=== PATIENT | male | born 1955 | race Caucasian/White ===

== ENCOUNTER 2017-01-27 14:19 | Inpatient (IN) | payer MEDICAID, MEDICARE ==
--- NOTE | 2017-01-27 14:54 | ED Physician Chart ---
Chief Complaint/HPI - Patient Information Date Seen:: 01/27/17 Time Seen:: 14:40 Chief Complaint:: redness left foot History of Present Illness:: Patient underwent debridement of necrotizing fasciitis of left first toe and forefoot with secondary necrosis on 12/16/2016 at [facility]. He has not received antibiotics for about one week. He denies chills or fever. Allergies:: Allergies Allergy/AdvReac Type Severity Reaction Status Date / Time No Known Allergies Allergy Verified 01/27/17 14:29 Vitals:: Vital Signs - 8 hr 01/27/17 14:19 Temp 97.9 F HR 77 RR 18 BP 158/82 O2 Sat % 96 Historian:: Patient Review:: Nurse's Note Reviewed Review of Systems - Review of Systems General/Constitutional: No fever, No chills Skin: Skin lesions Head: No headache Eyes: No loss of vision ENT: No earache Neck: No neck pain Cardio Vascular: No chest pain Pulmonary: No SOB, No cough GI: No nausea, No vomiting G/U: No dysuria, No hematuria Endocrine: No polyuria, No polydipsia Psychiatric: No prior psych history Hematopoietic: No bruising Allergic/Immuno: No urticaria Neurological: No syncope Past Medical History - Past Medical History Past Medical History: DM, Other (right inguinal hernia) Family History: Cancer Social History: Non Smoker, No Alcohol, Other (patient stopped drinking alcohol more than 1 month ago) Surgical History: other (See under history and physical) Psychiatricy History: None Medication: Reviewed Family Medical History - Family Member Mother History Unknown: Yes Physical Exam - Physical Examination General/Constitutional: Well-developed, well-nourished, Alert, No distress Head: Atraumatic Eyes: Lids, conjuctiva normal, PERRL Other Skin comments:: Approximately 6 x 3 cm irregular area of granulating tissue medial distal left foot. There is erythema of the medial and plantar aspects of the left foot. The erythema extends proximally to the level of anterior aspect of the medial malleolus. ENMT: External ears, nose nl Neck: No nuchal rigidity Respiratory: Nl effort/Exclusion, Clear to Auscultation Cardio Vascular: RRR, No murmur, gallop, rubs, NL S1 S2 GI: No tenderness/rebounding/guarding, No organomegaly Other GI comments:: Large right inguinal hernia : No CVA tenderness Other Extremities comments:: .See above under skin Neuro/Psych: Alert/oriented, No focal deficits Misc: Normal back ED Septic Shock - . Is Septic Shock (SBP<90, OR Lactate>4 mmol\L) present?: No - <6hrs of presentation: Vital Signs: Vital Signs - 8 hr 01/27/17 14:19 Temp 97.9 F HR 77 RR 18 BP 158/82 O2 Sat % 96 Reassessment (Disposition) - Reassessment Reassessment:: I spoke to at about 1445. He wanted the patient [facility] with a consult to Dr.Devesh Seth with whom I spoke a few minutes later. Reassessment Condition:: Unchanged - Diagnosis Diagnosis:: Cellulitis left foot; diabetes - Patient Disposition Admitted to:: Med/Surg Spoke to:: Dr. May Admitting Medical Physician:: Dr. May Condition at Disposition:: Unchanged
[2017-01-27 15:04] LABS: HEMATOCRIT 40.8 % (39.0-49.0); HEMOGLOBIN 13.3 gm/dL (13.2-17.3); MEAN CELL VOLUME 88.8 fl (80-99); MEAN CORPUSCULAR HEMOGLOBIN 28.8 pg (26.0-30.0); MEAN CORPUSCULAR HGB CONC 32.5 pg (28.0-36.0); MEAN PLATELET VOLUME 8.7 fl; PLATELET COUNT 233 Th/cmm (150-400); RED CELL DISTRIBUTION WIDTH 13.1 % (11.5-20.0); WHITE BLOOD COUNT 10.4 Th/cmm (4.8-10.8)
[2017-01-27 15:22] LABS: ANION GAP 9.1 (7.0-16.0); BUN - UREA NITROGEN 18 mg/dL (7-25); BUN/CREATININE RATIO 13.8; CALCIUM SERUM 9.8 mg/dL (8.6-10.3); CARBON DIOXIDE 23.8 mEq/L (21.0-31.0); CHLORIDE 106 mEq/L (98-107); CREATININE - SERUM 1.3 mg/dL (0.7-1.3); GLUCOSE 174 mg/dL (70-105); POTASSIUM SERUM 3.9 mEq/L (3.5-5.1); SODIUM SERUM 135 mEq/L (136-145)
[2017-01-27 15:30] LABS: EOSINOPHIL 28 % (0-5); NEUTROPHILS 46 % (40-80); PLATELET ESTIMATE ADEQUATE (NORMAL); TOTAL CELLS COUNTED 100
[2017-01-27] MEDS: APAP/Oxycodone 5/325mg Oral Tab PO PRN (22:46)
[2017-01-27] MEDS ORDERED: APAP/Oxycodone 5/325mg Oral Tab PO PRN (23:27)
[2017-01-27] MEDS ORDERED: Albuterol/Ipratropium Neb 3 ML AERS HHN PRN (23:27)
[2017-01-27] MEDS ORDERED: Guaifenesin DM 10 ML UDC PO PRN (23:27)
[2017-01-28] MEDS ORDERED: Non-Formulary Item 1 EA (Insulin Lispro [Humalog] 2 UNIT) SUBQ SCH (07:30)
[2017-01-28] MEDS: INSULIN ASPART SLIDING SCALE 100 UNITS/ML UNIT SUBQ SCH ×4 (07:42→20:56)
[2017-01-28] MEDS: Multivitamin w/ Minerals Tab PO SCH (08:59)
--- NOTE | 2017-01-28 10:12 | History and Physical ---
History of Present Illness - HPI Chief Complaint: left foot redness HPI: 61 year old male patient presented with c/o left foot redness and pain s/p debridement of necrotizing fascitis of left first toe and forefoot states not taking antibiotics for 1 week Vital Signs: Last Vital Signs Temp 98.3 F 01/28/17 07:53 Pulse 60 01/28/17 08:59 Resp 18 01/28/17 08:00 BP 144/70 01/28/17 08:59 Pulse Ox 95 01/28/17 08:00 Past Medical History Cardiovascular: Report: No Pertinent Hx Pulmonary: Report: No Pertinent Hx [employer]: Report: No Pertinent Hx GI: Report: No Pertinent Hx Psych: Report: No Pertinent Hx Musculoskeletal: Report: No Pertinent Hx Rheumatologic: Report: No pertinent Hx Infectious Disease: Report: No Pertinent Hx Renal/: Report: No Pertinent Hx Endocrine: Report: Diabetes Dermatology: Report: No Pertinent Hx - Past Surgical History Past Surgical History: Hernia Repair Family Medical History - Family Member Mother History Unknown: Yes Age: 61 Ethnicity: Living Status: Unknown Hx Family Cancer: Yes Hx Family Coronary Artery Disease: No Hx Family Congestive Heart Failure: No Hx Family Hypertension: No Hx Family Stroke: No Hx Family Diabetes: No Hx Family Seizures: No Hx Family Dementia: No Hx Family AIDS: No Hx Family HIV: No Hx Family COPD: No Hx Family Hepatitis: No Hx Family Psychiatric Problems: No Hx Family Tuberculosis: No Social History Smoke: No Alcohol: None, Other (patient stopped drinking alcohol 1 month ago) Drugs: None Lives: Other Domestic Violence: Negative Health Maintenance Health Maintenance: Other - Medications Home Medications: Home Medication Medication Instructions Recorded Type Acetaminophen [Tylenol] 650 mg PO Q6H PRN 01/27/17 History Albuterol/Ipratropium Neb [Duoneb 3 ml HHN Q6H PRN 01/27/17 History Neb] Ascorbic Acid 500 mg PO DAILY 01/27/17 History Docusate Sodium [Colace] 100 mg PO BID 01/27/17 History Duloxetine HCl [Cymbalta] 30 mg PO HS 01/27/17 History Folic Acid [Folate] 1 mg PO DAILY 01/27/17 History Guaifenesin DM [Robitussin DM] 10 ml PO Q6HR PRN 01/27/17 History Hydralazine [Apresoline] 10 mg PO Q6H PRN 01/27/17 History Insulin Glargine, Recombinan 10 units SUBQ HS 01/27/17 History [Lantus] Insulin Lispro [Humalog] 2 unit SUBQ ACHS 01/27/17 History Lisinopril [Prinivil] 10 mg PO DAILY 01/27/17 History Multivitamin with Minerals 1 tab PO DAILY 01/27/17 History [Nature's Blend Multiple Vitamin with Minerals] Oxycodone HCl/Acetaminophen 1 tab PO Q4H PRN 01/27/17 History [Oxycodone HCl-Acetaminophen 325 mg-10 mg] Pregabalin [Lyrica] 25 mg PO TID 01/27/17 History Thiamine [Vitamin B1] 100 mg PO DAILY 01/27/17 History Tramadol HCl [Ultram] 50 mg PO Q6H PRN 01/27/17 History Zinc Sulfate 220 mg PO DAILY 01/27/17 History amLODIPine Besylate [Norvasc] 10 mg PO DAILY 01/27/17 History cloNIDine HCl [Catapres] 0.1 mg PO BID 01/27/17 History - Allergies Allergies/Adverse Reactions: Allergies Allergy/AdvReac Type Severity Reaction Status Date / Time No Known Allergies Allergy Verified 01/27/17 14:29 Review of Systems - Review of Systems Constitutional: Report: No Significant Eyes: Report: No Significant ENT: Report: No Significant Respiratory: Report: No Significant Cardiovascular: Report: No Significant Gastrointestinal: Report: No Significant Genitourinary: Report: No Significant Musculoskeletal: Report: No Significant Skin: Report: Other (left foot/pain swelling ) Neurological: Report: No Significant Physical Exam - Physical Exam HEENT: Report: Ears Nose Throat within normal limits Neck: Report: Within normal limits Cardiovascular Systems: Report: +s1/s2 noted Respiratory: Report: Breath Sounds are within normal limits Abdomen: Report: Non-tender to palpation Back: Report: Inspection of back is within normal limits. Extremities: Report: Non-tender to palpation. Skin: Report: A wound was noted. Denies: Dry, Diaphoresis (cellulitis of left foot ) Neuro/Psych: Report: Mood affect is within normal limits - Lab Results All Lab Results last 24 hours: Laboratory Last Values WBC 10.4 Th/cmm (4.8-10.8) 01/27/17 14:55 RBC 4.60 Mil/cmm (4.30-5.70) 01/27/17 14:55 Hgb 13.3 gm/dL (13.2-17.3) 01/27/17 14:55 Hct 40.8 % (39.0-49.0) 01/27/17 14:55 MCV 88.8 fl (80-99) 01/27/17 14:55 MCH 28.8 pg (26.0-30.0) 01/27/17 14:55 MCHC Differential 32.5 pg (28.0-36.0) 01/27/17 14:55 RDW 13.1 % (11.5-20.0) 01/27/17 14:55 Plt Count 233 Th/cmm (150-400) 01/27/17 14:55 MPV 8.7 fl 01/27/17 14:55 Neutrophils (Manual) 46 % (40-80) 01/27/17 14:55 Lymphocytes 22 % (20-50) 01/27/17 14:55 Monocytes 4 % (2-10) 01/27/17 14:55 Eosinophils 28 % (0-5) H 01/27/17 14:55 Platelet Estimate ADEQUATE (NORMAL) 01/27/17 14:55 Sodium 135 mEq/L (136-145) L 01/27/17 14:55 Potassium 3.9 mEq/L (3.5-5.1) 01/27/17 14:55 Chloride 106 mEq/L (98-107) 01/27/17 14:55 Carbon Dioxide 23.8 mEq/L (21.0-31.0) 01/27/17 14:55 Anion Gap 9.1 (7.0-16.0) 01/27/17 14:55 BUN 18 mg/dL (7-25) 01/27/17 14:55 Creatinine 1.3 mg/dL (0.7-1.3) 01/27/17 14:55 Est GFR ( Amer) > 60.0 ml/min (>90) 01/27/17 14:55 Est GFR (Non-Af Amer) 59.3 ml/min 01/27/17 14:55 BUN/Creatinine Ratio 13.8 01/27/17 14:55 Glucose 174 mg/dL (70-105) H 01/27/17 14:55 POC Glucose 105 MG/DL (70 - 105) 01/28/17 06:23 Hemoglobin A1c % 6.9 % (4.0-6.0) H 01/28/17 05:39 Calcium 9.8 mg/dL (8.6-10.3) 01/27/17 14:55 Laboratory Results - last 24 hr 01/27/17 01/27/17 01/27/17 14:55 14:55 22:49 WBC 10.4 RBC 4.60 Hgb 13.3 Hct 40.8 MCV 88.8 MCH 28.8 MCHC Differential 32.5 RDW 13.1 Plt Count 233 MPV 8.7 Neutrophils (Manual) 46 Lymphocytes 22 Monocytes 4 Eosinophils 28 H Platelet Estimate ADEQUATE Sodium 135 L Potassium 3.9 Chloride 106 Carbon Dioxide 23.8 Anion Gap 9.1 BUN 18 Creatinine 1.3 Est GFR ( Amer) > 60.0 Est GFR (Non-Af Amer) 59.3 BUN/Creatinine Ratio 13.8 Glucose 174 H POC Glucose 150 H Hemoglobin A1c % Calcium 9.8 01/28/17 01/28/17 05:39 06:23 WBC RBC Hgb Hct MCV MCH MCHC Differential RDW Plt Count MPV Neutrophils (Manual) Lymphocytes Monocytes Eosinophils Platelet Estimate Sodium Potassium Chloride Carbon Dioxide Anion Gap BUN Creatinine Est GFR ( Amer) Est GFR (Non-Af Amer) BUN/Creatinine Ratio Glucose POC Glucose 105 Hemoglobin A1c % 6.9 H Calcium - Assessment Assessment: cellulitis of left foot s/p debridment of necrotizing fascitis of left first toe and forefoot Diabetes - Plan Plan: as per order sheet
--- NOTE | 2017-01-28 12:15 | Consultation ---
Consult Note - Consult Note Service Date: 01/28/17 Referring Physician: Callie May Consult Note: PHYSICIAN Consultation Note: Date of Admission: 01/27/17 Purpose of Consultation: infected wound. Chief Complaint: Patient SIERRA ZUNIGA was admitted to [facility] with LEFT FOOT CELLULITIS. History of Present Illness: 61 y male with history of DM admitted to the [facility] on 12/16/2016 for the left foot wound and diagnosed gas gangrene, narcotizing fascitis. surgical intervention performed by Dr Stanton. He was also suspected to have osteomyelitis. He was discharged to the SNF for further antibiotic management. He was sent to [place] [facility] for evaluation of left foot wound. ID consult was called for antibiotic management. There is no fever. As per the patient the wound is healing well. He was also not receiving IV antibiotic for one week. He also does not know the name of antibiotics. Past Medical History: DM2. H/o hernia repair. Allergies Allergy/AdvReac Type Severity Reaction Status Date / Time No Known Allergies Allergy Verified 01/27/17 14:29 Vital Signs Temp 98.4 F 01/28/17 12:05 Pulse 70 01/28/17 12:05 Resp 17 01/28/17 12:05 BP 147/79 01/28/17 12:05 Pulse Ox 98 01/28/17 12:05 Intake & Output 01/27/17 01/28/17 01/28/17 18:59 06:59 18:59 Intake Total 240 300 480 Balance 240 300 480 Weight (lbs) 107.955 kg 105.551 kg 105.551 kg Intake: Oral 240 300 480 Other: # Voids 1 2 # Bowel Movements 0 Laboratory Results - last 24 hr 01/27/17 01/27/17 01/27/17 14:55 14:55 22:49 WBC 10.4 RBC 4.60 Hgb 13.3 Hct 40.8 MCV 88.8 MCH 28.8 MCHC Differential 32.5 RDW 13.1 Plt Count 233 MPV 8.7 Neutrophils (Manual) 46 Lymphocytes 22 Monocytes 4 Eosinophils 28 H Platelet Estimate ADEQUATE Sodium 135 L Potassium 3.9 Chloride 106 Carbon Dioxide 23.8 Anion Gap 9.1 BUN 18 Creatinine 1.3 Est GFR ( Amer) > 60.0 Est GFR (Non-Af Amer) 59.3 BUN/Creatinine Ratio 13.8 Glucose 174 H POC Glucose 150 H Hemoglobin A1c % Calcium 9.8 01/28/17 01/28/17 05:39 06:23 WBC RBC Hgb Hct MCV MCH MCHC Differential RDW Plt Count MPV Neutrophils (Manual) Lymphocytes Monocytes Eosinophils Platelet Estimate Sodium Potassium Chloride Carbon Dioxide Anion Gap BUN Creatinine Est GFR ( Amer) Est GFR (Non-Af Amer) BUN/Creatinine Ratio Glucose POC Glucose 105 Hemoglobin A1c % 6.9 H Calcium Home Medication Medication Instructions Recorded Type Acetaminophen [Tylenol] 650 mg PO Q6H PRN 01/27/17 History Albuterol/Ipratropium Neb [Duoneb 3 ml HHN Q6H PRN 01/27/17 History Neb] Ascorbic Acid 500 mg PO DAILY 01/27/17 History Docusate Sodium [Colace] 100 mg PO BID 01/27/17 History Duloxetine HCl [Cymbalta] 30 mg PO HS 01/27/17 History Folic Acid [Folate] 1 mg PO DAILY 01/27/17 History Guaifenesin DM [Robitussin DM] 10 ml PO Q6HR PRN 01/27/17 History Hydralazine [Apresoline] 10 mg PO Q6H PRN 01/27/17 History Insulin Glargine, Recombinan 10 units SUBQ HS 01/27/17 History [Lantus] Insulin Lispro [Humalog] 2 unit SUBQ ACHS 01/27/17 History Lisinopril [Prinivil] 10 mg PO DAILY 01/27/17 History Multivitamin with Minerals 1 tab PO DAILY 01/27/17 History [Nature's Blend Multiple Vitamin with Minerals] Oxycodone HCl/Acetaminophen 1 tab PO Q4H PRN 01/27/17 History [Oxycodone HCl-Acetaminophen 325 mg-10 mg] Pregabalin [Lyrica] 25 mg PO TID 01/27/17 History Thiamine [Vitamin B1] 100 mg PO DAILY 01/27/17 History Tramadol HCl [Ultram] 50 mg PO Q6H PRN 01/27/17 History Zinc Sulfate 220 mg PO DAILY 01/27/17 History amLODIPine Besylate [Norvasc] 10 mg PO DAILY 01/27/17 History cloNIDine HCl [Catapres] 0.1 mg PO BID 01/27/17 History Current Medications Generic Name Dose Route Start Last Admin Trade Name Freq PRN Reason Stop Dose Admin Acetaminophen 650 mg 01/27/17 23:27 Tylenol PO 03/28/17 23:26 Q6H PRN mild pain and temp >101 Albuterol/Ipratropium 3 ml 01/27/17 23:27 Duoneb Neb HHN 03/28/17 23:26 Q6H PRN sob Amlodipine Besylate 10 mg 01/28/17 09:00 01/28/17 08:58 Norvasc PO 03/29/17 08:59 10 mg DAILY MONISHA Administration Ascorbic Acid 500 mg 01/28/17 09:00 01/28/17 09:00 Vitamin C PO 03/29/17 08:59 500 mg DAILY MONISHA Administration Clonidine HCl 0.1 mg 01/28/17 09:00 01/28/17 08:59 Catapres PO 03/29/17 08:59 0.1 mg BID MONISHA Administration Docusate Sodium 100 mg 01/28/17 09:00 01/28/17 09:00 Colace PO 03/29/17 08:59 100 mg BID MONISHA Administration Duloxetine HCl 30 mg 01/28/17 21:00 Cymbalta PO 03/29/17 20:59 HS [facility] Protocol Folic Acid 1 mg 01/28/17 09:00 01/28/17 08:59 Folate PO 03/29/17 08:59 1 mg DAILY MONISHA Administration Guaifenesin/Dextromethorphan 10 ml 01/27/17 23:27 Robitussin Dm PO 03/28/17 23:26 Q6HR PRN Cough Hydralazine HCl 10 mg 01/27/17 23:27 Apresoline PO 03/28/17 23:26 Q6H PRN sbp>160 Insulin Aspart 0 units 01/28/17 07:30 01/28/17 07:42 Novolog Insulin Sliding Scale SUBQ 03/29/17 07:29 Not Given ACHS [facility] Protocol Insulin Detemir 10 units 01/28/17 21:00 Levemir Insulin SUBQ 03/29/17 20:59 HS [facility] Lisinopril 10 mg 01/28/17 09:00 01/28/17 08:59 Zestril PO 03/29/17 08:59 10 mg DAILY MONISHA Administration Miscellaneous 2 unit 01/28/17 07:30 Insulin Lispro [Humalog] SUBQ 03/29/17 07:29 ACHS MONISHA Oxycodone/Acetaminophen 2 tab 01/27/17 17:20 01/27/17 22:46 Percocet 5/325mg Oral Tab PO 03/28/17 17:19 2 tab Q6H PRN Administration Pain (SEVERE) Oxycodone/Acetaminophen 1 tab 01/27/17 23:27 Percocet 5/325mg Oral Tab PO Q4H PRN MOD PAIN Pregabalin 25 mg 01/28/17 09:00 01/28/17 08:58 Lyrica PO 03/29/17 08:59 25 mg TID MONISHA Administration Thiamine HCl 100 mg 01/28/17 09:00 01/28/17 09:00 Vitamin B1 PO 03/29/17 08:59 100 mg DAILY MONISHA Administration Tramadol HCl 50 mg 01/27/17 23:27 Ultram PO 03/28/17 23:26 Q6H PRN breakthrough pain Zinc Sulfate 220 mg 01/28/17 09:00 01/28/17 08:58 Zinc Sulfate PO 03/29/17 08:59 220 mg DAILY MONISHA Administration Review of Systems: A 12 point ROS was reviewed with the pertinent positive and negatives noted in the HPI. Social History Lives at [facility]. Smoking Status Never smoker Family Medical History Unknown Physical Exam: General: No Acute Distress HEENT: EOMI Bilaterally, PERRLA Bilaterally, Head is normocephalic, atraumatic on inspection. Cardio: +S1/S2 Auscultated, RRR, no murmurs/rubs/gallops noted Respiratory: Clear to Auscultate Bilaterally Abdominal: Soft, Nondistended, Nontender to palpation x 4 quadrants Extremities: No Edema noted in the lower extremities. Left foot: on media aspect there is a stage 3 open wound distal; to the big toe with serous discharge. The base is pink/ Neurological: Alert and Oriented x3, Cranial Nerves II-XII intact bilaterally, Gait Steady, No Focal Deficits noted. Assessment/Plan: 1. OPEN stage 3 wound of the left foot. with suspicion of osteomyelitis. 2. DM2. RECOMMENDATION: Will continue wound care. He has almost received around 5 weeks of IV antibiotics. Check wound culture and 3 phase bone scan. Check ESR CRP in am. Will get reports from [facility].\ Consult Dr Stanton. wait for the labs and further input from DR Jacobson and take dicision accordingly. Thank you, Dr May. Rolo Castellon Devesh N., M.D. [id number]
[2017-01-28] MEDS: APAP/Oxycodone 5/325mg Oral Tab PO PRN (14:29)
[2017-01-28] MEDS ORDERED: VTE Chemical Prophylaxis Screen/Admission MC PRN (15:42)
[2017-01-28] MEDS: Insulin Detemir 100 units/mL 10mL Vial SUBQ SCH (20:56)
[2017-01-29] MEDS: INSULIN ASPART SLIDING SCALE 100 UNITS/ML UNIT SUBQ SCH ×4 (07:32→20:21)
[2017-01-29] MEDS: Multivitamin w/ Minerals Tab PO SCH (08:57)
--- NOTE | 2017-01-29 10:14 | Diagnostic Imaging Report ---
Examination: Three-phase bone scan. HISTORY osteomyelitis. Findings: utilizing 19.6 mCi technetium 99m 3-phase bone scan was obtained of lower extremities. The flow images, static images, and delayed images of both feet were obtained. The study demonstrates increased uptake on the right from a surgical on the medial aspect of the left foot distally most likely represents cellulitis. Mild inflammatory changes are noted on the plantar aspect of the right distal foot also might be related to cellulitis. There is no evidence of osteolytic involvement. IMPRESSION 1. Soft tissue cellulitis no evidence for osteomyelitis of the feet bilaterally
[2017-01-29] MEDS: Insulin Detemir 100 units/mL 10mL Vial SUBQ SCH (20:22)
[2017-01-30] MEDS: INSULIN ASPART SLIDING SCALE 100 UNITS/ML UNIT SUBQ SCH ×4 (06:58→21:24)
[2017-01-30] MEDS: Multivitamin w/ Minerals Tab PO SCH (09:38)
--- NOTE | 2017-01-30 10:08 | General Progress Note ---
Subjective - Review of Systems Events since last encounter: patient with left foot cellulitis no distress c/o pain Objective - Results Result Diagrams: 01/27/17 14:55 01/27/17 14:55 Recent Labs: Laboratory Last Values WBC 10.4 Th/cmm (4.8-10.8) 01/27/17 14:55 RBC 4.60 Mil/cmm (4.30-5.70) 01/27/17 14:55 Hgb 13.3 gm/dL (13.2-17.3) 01/27/17 14:55 Hct 40.8 % (39.0-49.0) 01/27/17 14:55 MCV 88.8 fl (80-99) 01/27/17 14:55 MCH 28.8 pg (26.0-30.0) 01/27/17 14:55 MCHC Differential 32.5 pg (28.0-36.0) 01/27/17 14:55 RDW 13.1 % (11.5-20.0) 01/27/17 14:55 Plt Count 233 Th/cmm (150-400) 01/27/17 14:55 MPV 8.7 fl 01/27/17 14:55 Neutrophils (Manual) 46 % (40-80) 01/27/17 14:55 Lymphocytes 22 % (20-50) 01/27/17 14:55 Monocytes 4 % (2-10) 01/27/17 14:55 Eosinophils 28 % (0-5) H 01/27/17 14:55 Platelet Estimate ADEQUATE (NORMAL) 01/27/17 14:55 ESR 41 mm/hr (0-20) H 01/29/17 10:00 Sodium 135 mEq/L (136-145) L 01/27/17 14:55 Potassium 3.9 mEq/L (3.5-5.1) 01/27/17 14:55 Chloride 106 mEq/L (98-107) 01/27/17 14:55 Carbon Dioxide 23.8 mEq/L (21.0-31.0) 01/27/17 14:55 Anion Gap 9.1 (7.0-16.0) 01/27/17 14:55 BUN 18 mg/dL (7-25) 01/27/17 14:55 Creatinine 1.3 mg/dL (0.7-1.3) 01/27/17 14:55 Est GFR ( Amer) > 60.0 ml/min (>90) 01/27/17 14:55 Est GFR (Non-Af Amer) 59.3 ml/min 01/27/17 14:55 BUN/Creatinine Ratio 13.8 01/27/17 14:55 Glucose 174 mg/dL (70-105) H 01/27/17 14:55 POC Glucose 119 MG/DL (70 - 105) H 01/30/17 05:26 Hemoglobin A1c % 6.9 % (4.0-6.0) H 01/28/17 05:39 Calcium 9.8 mg/dL (8.6-10.3) 01/27/17 14:55 C-Reactive Protein < 0.2 mg/dL (0.0-0.9) 01/29/17 10:00 - Physical Exam Vitals and I&O: Vital Signs Temp 98.3 F 01/30/17 04:00 Pulse 73 01/30/17 09:41 Resp 14 01/30/17 08:05 BP 147/88 01/30/17 09:41 Pulse Ox 96 01/30/17 08:05 Intake & Output 01/29/17 01/30/17 01/30/17 18:59 06:59 18:59 Intake Total 250 730 Balance 250 730 Weight (lbs) 103.873 kg Intake: Intake, IV Amount 250 250 Vancomycin HCl 1 gm In 250 250 Sodium Chloride 0.9% 250 ml @ 165 mls/hr IV Q12HR [facility] Rx#:[id number] Oral 480 Other: # Voids 3 Active Medications: Current Medications Acetaminophen (Tylenol) 650 mg PO Q6H PRN PRN Reason: mild pain and temp >101 Stop: 03/28/17 23:26 Albuterol/Ipratropium (Duoneb Neb) 3 ml HHN Q6H PRN PRN Reason: sob Stop: 03/28/17 23:26 Amlodipine Besylate (Norvasc) 10 mg PO DAILY [facility] Stop: 03/29/17 08:59 Last Admin: 01/30/17 09:39 Dose: 10 mg Ascorbic Acid (Vitamin C) 500 mg PO DAILY [facility] Stop: 03/29/17 08:59 Last Admin: 01/30/17 09:39 Dose: 500 mg Clonidine HCl (Catapres) 0.1 mg PO BID [facility] Stop: 03/29/17 08:59 Last Admin: 01/30/17 09:38 Dose: 0.1 mg Docusate Sodium (Colace) 100 mg PO BID [facility] Stop: 03/29/17 08:59 Last Admin: 01/30/17 09:40 Dose: 100 mg Duloxetine HCl (Cymbalta) 30 mg PO [facility] PRN Reason: Protocol Stop: 03/29/17 20:59 Last Admin: 01/29/17 20:22 Dose: 30 mg Folic Acid (Folate) 1 mg PO DAILY [facility] Stop: 03/29/17 08:59 Last Admin: 01/30/17 09:40 Dose: 1 mg Guaifenesin/Dextromethorphan (Robitussin Dm) 10 ml PO Q6HR PRN PRN Reason: Cough Stop: 03/28/17 23:26 Heparin Sodium (Porcine) (Heparin) 5,000 units SUBQ Q12H [facility] Stop: 03/29/17 20:59 Last Admin: 01/30/17 09:41 Dose: Not Given Hydralazine HCl (Apresoline) 10 mg PO Q6H PRN PRN Reason: sbp>160 Stop: 03/28/17 23:26 Vancomycin HCl 1 gm/ Sodium (Chloride) 250 mls @ 165 mls/hr IV Q12HR [facility] Stop: 03/30/17 08:59 Last Admin: 01/30/17 09:50 Dose: 165 mls/hr Insulin Aspart (Novolog Insulin Sliding Scale) 0 units SUBQ ACHS [facility] PRN Reason: Protocol Stop: 03/29/17 07:29 Last Admin: 01/30/17 06:58 Dose: Not Given Insulin Detemir (Levemir Insulin) 10 units SUBQ HS [facility] Stop: 03/29/17 20:59 Last Admin: 01/29/17 20:22 Dose: 10 units Lisinopril (Zestril) 10 mg PO DAILY [facility] Stop: 03/29/17 08:59 Last Admin: 01/30/17 09:41 Dose: 10 mg Miscellaneous (Vte Chemical Prophylaxis Screen/ Admission) 1 ea [facility] PRN PRN PRN Reason: PROTOCOL Stop: 03/29/17 15:41 Miscellaneous (Vancomycin Iv Per Pharmacy) 1 ea [facility] PRN PRN PRN Reason: PROTOCOL Stop: 03/30/17 08:30 Oxycodone/Acetaminophen (Percocet 5/325mg Oral Tab) 2 tab PO Q6H PRN PRN Reason: Pain (SEVERE) Stop: 03/28/17 17:19 Last Admin: 01/28/17 14:29 Dose: 2 tab Oxycodone/Acetaminophen (Percocet 5/325mg Oral Tab) 1 tab PO Q4H PRN PRN Reason: MOD PAIN Pregabalin (Lyrica) 25 mg PO TID [facility] Stop: 03/29/17 08:59 Last Admin: 01/30/17 09:38 Dose: 25 mg Thiamine HCl (Vitamin B1) 100 mg PO DAILY [facility] Stop: 03/29/17 08:59 Last Admin: 01/30/17 09:40 Dose: 100 mg Tramadol HCl (Ultram) 50 mg PO Q6H PRN PRN Reason: breakthrough pain Stop: 03/28/17 23:26 Zinc Sulfate (Zinc Sulfate) 220 mg PO DAILY [facility] Stop: 03/29/17 08:59 Last Admin: 01/29/17 08:57 Dose: 220 mg General: No acute distress HEENT: Atraumatic Cardiovascular: Regular rate Assessment/Plan - Assessment Assessment: cellulitis of left foot s/p debridment of necrotizing fascitis of left first toe and forefoot Diabetes - Plan Plan: as per order sheet
--- NOTE | 2017-01-30 14:24 | Infectious Disease Prog Note ---
Infectious Disease Subjective - Review of Systems Service Date: 01/30/17 Subjective: No new change, no fever. Infectious Disease Objective - Results Result Diagrams: 01/27/17 14:55 01/27/17 14:55 Recent Labs: Laboratory Last Values WBC 10.4 Th/cmm (4.8-10.8) 01/27/17 14:55 RBC 4.60 Mil/cmm (4.30-5.70) 01/27/17 14:55 Hgb 13.3 gm/dL (13.2-17.3) 01/27/17 14:55 Hct 40.8 % (39.0-49.0) 01/27/17 14:55 MCV 88.8 fl (80-99) 01/27/17 14:55 MCH 28.8 pg (26.0-30.0) 01/27/17 14:55 MCHC Differential 32.5 pg (28.0-36.0) 01/27/17 14:55 RDW 13.1 % (11.5-20.0) 01/27/17 14:55 Plt Count 233 Th/cmm (150-400) 01/27/17 14:55 MPV 8.7 fl 01/27/17 14:55 Neutrophils (Manual) 46 % (40-80) 01/27/17 14:55 Lymphocytes 22 % (20-50) 01/27/17 14:55 Monocytes 4 % (2-10) 01/27/17 14:55 Eosinophils 28 % (0-5) H 01/27/17 14:55 Platelet Estimate ADEQUATE (NORMAL) 01/27/17 14:55 ESR 41 mm/hr (0-20) H 01/29/17 10:00 Sodium 135 mEq/L (136-145) L 01/27/17 14:55 Potassium 3.9 mEq/L (3.5-5.1) 01/27/17 14:55 Chloride 106 mEq/L (98-107) 01/27/17 14:55 Carbon Dioxide 23.8 mEq/L (21.0-31.0) 01/27/17 14:55 Anion Gap 9.1 (7.0-16.0) 01/27/17 14:55 BUN 18 mg/dL (7-25) 01/27/17 14:55 Creatinine 1.3 mg/dL (0.7-1.3) 01/27/17 14:55 Est GFR ( Amer) > 60.0 ml/min (>90) 01/27/17 14:55 Est GFR (Non-Af Amer) 59.3 ml/min 01/27/17 14:55 BUN/Creatinine Ratio 13.8 01/27/17 14:55 Glucose 174 mg/dL (70-105) H 01/27/17 14:55 POC Glucose 157 MG/DL (70 - 105) H 01/30/17 11:31 Hemoglobin A1c % 6.9 % (4.0-6.0) H 01/28/17 05:39 Calcium 9.8 mg/dL (8.6-10.3) 01/27/17 14:55 C-Reactive Protein < 0.2 mg/dL (0.0-0.9) 01/29/17 10:00 - Physical Exam Vitals and I&O: Vital Signs Temp 97.9 F 01/30/17 08:00 Pulse 73 01/30/17 09:41 Resp 14 01/30/17 08:05 BP 147/88 01/30/17 09:41 Pulse Ox 96 01/30/17 08:05 Intake & Output 01/29/17 01/30/17 01/30/17 18:59 06:59 18:59 Intake Total 250 730 Balance 250 730 Weight (lbs) 103.873 kg 103.873 kg Intake: Intake, IV Amount 250 250 Vancomycin HCl 1 gm In 250 250 Sodium Chloride 0.9% 250 ml @ 165 mls/hr IV Q12HR [facility] Rx#:[id number] Oral 480 Other: # Voids 3 Stool Characteristics Soft Active Medications: Current Medications Acetaminophen (Tylenol) 650 mg PO Q6H PRN PRN Reason: mild pain and temp >101 Stop: 03/28/17 23:26 Albuterol/Ipratropium (Duoneb Neb) 3 ml HHN Q6H PRN PRN Reason: sob Stop: 03/28/17 23:26 Amlodipine Besylate (Norvasc) 10 mg PO DAILY [facility] Stop: 03/29/17 08:59 Last Admin: 01/30/17 09:39 Dose: 10 mg Ascorbic Acid (Vitamin C) 500 mg PO DAILY [facility] Stop: 03/29/17 08:59 Last Admin: 01/30/17 09:39 Dose: 500 mg Clonidine HCl (Catapres) 0.1 mg PO BID [facility] Stop: 03/29/17 08:59 Last Admin: 01/30/17 09:38 Dose: 0.1 mg Docusate Sodium (Colace) 100 mg PO BID [facility] Stop: 03/29/17 08:59 Last Admin: 01/30/17 09:40 Dose: 100 mg Duloxetine HCl (Cymbalta) 30 mg PO HS [facility] PRN Reason: Protocol Stop: 03/29/17 20:59 Last Admin: 01/29/17 20:22 Dose: 30 mg Folic Acid (Folate) 1 mg PO DAILY [facility] Stop: 03/29/17 08:59 Last Admin: 01/30/17 09:40 Dose: 1 mg Guaifenesin/Dextromethorphan (Robitussin Dm) 10 ml PO Q6HR PRN PRN Reason: Cough Stop: 03/28/17 23:26 Heparin Sodium (Porcine) (Heparin) 5,000 units SUBQ Q12H [facility] Stop: 03/29/17 20:59 Last Admin: 01/30/17 09:41 Dose: Not Given Hydralazine HCl (Apresoline) 10 mg PO Q6H PRN PRN Reason: sbp>160 Stop: 03/28/17 23:26 Vancomycin HCl 1 gm/ Sodium (Chloride) 250 mls @ 165 mls/hr IV Q12HR [facility] Stop: 03/30/17 08:59 Last Admin: 01/30/17 09:50 Dose: 165 mls/hr Insulin Aspart (Novolog Insulin Sliding Scale) 0 units SUBQ ACHS [facility] PRN Reason: Protocol Stop: 03/29/17 07:29 Last Admin: 01/30/17 11:37 Dose: 2 units Insulin Detemir (Levemir Insulin) 10 units SUBQ HS [facility] Stop: 03/29/17 20:59 Last Admin: 01/29/17 20:22 Dose: 10 units Lisinopril (Zestril) 10 mg PO DAILY [facility] Stop: 03/29/17 08:59 Last Admin: 01/30/17 09:41 Dose: 10 mg Miscellaneous (Vte Chemical Prophylaxis Screen/ Admission) 1 ea [facility] PRN PRN PRN Reason: PROTOCOL Stop: 03/29/17 15:41 Miscellaneous (Vancomycin Iv Per Pharmacy) 1 ea [facility] PRN PRN PRN Reason: PROTOCOL Stop: 03/30/17 08:30 Oxycodone/Acetaminophen (Percocet 5/325mg Oral Tab) 2 tab PO Q6H PRN PRN Reason: Pain (SEVERE) Stop: 03/28/17 17:19 Last Admin: 01/28/17 14:29 Dose: 2 tab Oxycodone/Acetaminophen (Percocet 5/325mg Oral Tab) 1 tab PO Q4H PRN PRN Reason: MOD PAIN Pregabalin (Lyrica) 25 mg PO TID [facility] Stop: 03/29/17 08:59 Last Admin: 01/30/17 09:38 Dose: 25 mg Thiamine HCl (Vitamin B1) 100 mg PO DAILY [facility] Stop: 03/29/17 08:59 Last Admin: 01/30/17 09:40 Dose: 100 mg Tramadol HCl (Ultram) 50 mg PO Q6H PRN PRN Reason: breakthrough pain Stop: 03/28/17 23:26 Last Admin: 01/30/17 11:05 Dose: 50 mg Zinc Sulfate (Zinc Sulfate) 220 mg PO DAILY [facility] Stop: 03/29/17 08:59 Last Admin: 01/29/17 08:57 Dose: 220 mg General: no acute distress, well developed, well nourished HEENT: atraumatic, normocephalic, PERRLA, EOMI, moist mucous membrane Neck: supple, no thyromegaly, no lymphadenopathy, no rigid Cardiovascular: S1S2, regular Lungs: clear to auscultation bilaterally, clear to percussion Abdomen: soft, no tender, no distended Extremities: other (left forefoot wound medially just proximal to the left big toe.), no cyanosis, no clubbing, no edema Infectious Disease Assmt/Plan - Assessment Assessment: Impression: 1. left foot wound , wound culture grew MRSA. 3 phase bone scan came negative for osteomyelitis. Patient has received 5 weeks fo IV antibiotcs. 2. DM2 recommendation: Wound care is the mainstay of the treatment. Will give vanco IV while patient is in hospital , may discharge the patient on po antibiotic: Bactrim DS bid for 7 days. May follow up Dr Guillen's recommendations. DW patient.
[2017-01-30 14:42] LABS: HEMATOCRIT 38.2 % (39.0-49.0); HEMOGLOBIN 12.6 gm/dL (13.2-17.3); MEAN CELL VOLUME 88.7 fl (80-99); MEAN CORPUSCULAR HEMOGLOBIN 29.3 pg (26.0-30.0); MEAN PLATELET VOLUME 9.4 fl; PLATELET COUNT 198 Th/cmm (150-400); RED BLOOD COUNT 4.31 Mil/cmm (4.30-5.70); RED CELL DISTRIBUTION WIDTH 13.1 % (11.5-20.0); WHITE BLOOD COUNT 10.5 Th/cmm (4.8-10.8)
[2017-01-30 14:57] LABS: ANION GAP 6.2 (7.0-16.0); BUN - UREA NITROGEN 17 mg/dL (7-25); BUN/CREATININE RATIO 15.5; CALCIUM SERUM 9.6 mg/dL (8.6-10.3); CARBON DIOXIDE 25.1 mEq/L (21.0-31.0); CHLORIDE 109 mEq/L (98-107); CREATININE - SERUM 1.1 mg/dL (0.7-1.3); GLUCOSE 144 mg/dL (70-105); POTASSIUM SERUM 4.3 mEq/L (3.5-5.1); SODIUM SERUM 136 mEq/L (136-145)
[2017-01-30 15:44] LABS: EOSINOPHIL 25 % (0-5); NEUTROPHILS 43 % (40-80); PLATELET ESTIMATE ADEQUATE (NORMAL); TOTAL CELLS COUNTED 100
[2017-01-30] MEDS: APAP/Oxycodone 5/325mg Oral Tab PO PRN (21:23)
[2017-01-30] MEDS: Insulin Detemir 100 units/mL 10mL Vial SUBQ SCH (21:24)
[2017-01-31] MEDS: Multivitamin w/ Minerals Tab PO SCH (09:18)
[2017-01-31] MEDS: APAP/Oxycodone 5/325mg Oral Tab PO PRN (09:28)
--- NOTE | 2017-01-31 10:47 | General Progress Note ---
Subjective - Review of Systems Service Date: 01/31/17 Subjective: no change in pt condition pt still c/o: pain pt is in no acute distress Objective - Results Result Diagrams: 01/30/17 14:31 01/30/17 14:31 Recent Labs: Laboratory Last Values WBC 10.5 Th/cmm (4.8-10.8) 01/30/17 14:31 RBC 4.31 Mil/cmm (4.30-5.70) 01/30/17 14:31 Hgb 12.6 gm/dL (13.2-17.3) L 01/30/17 14:31 Hct 38.2 % (39.0-49.0) L 01/30/17 14:31 MCV 88.7 fl (80-99) 01/30/17 14:31 MCH 29.3 pg (26.0-30.0) 01/30/17 14:31 MCHC Differential 33.0 pg (28.0-36.0) 01/30/17 14:31 RDW 13.1 % (11.5-20.0) 01/30/17 14:31 Plt Count 198 Th/cmm (150-400) 01/30/17 14:31 MPV 9.4 fl 01/30/17 14:31 Neutrophils (Manual) 43 % (40-80) 01/30/17 14:31 Lymphocytes 25 % (20-50) 01/30/17 14:31 Monocytes 7 % (2-10) 01/30/17 14:31 Eosinophils 25 % (0-5) H 01/30/17 14:31 Platelet Estimate ADEQUATE (NORMAL) 01/30/17 14:31 ESR 41 mm/hr (0-20) H 01/29/17 10:00 Sodium 136 mEq/L (136-145) 01/30/17 14:31 Potassium 4.3 mEq/L (3.5-5.1) 01/30/17 14:31 Chloride 109 mEq/L (98-107) H 01/30/17 14:31 Carbon Dioxide 25.1 mEq/L (21.0-31.0) 01/30/17 14:31 Anion Gap 6.2 (7.0-16.0) L 01/30/17 14:31 BUN 17 mg/dL (7-25) 01/30/17 14:31 Creatinine 1.1 mg/dL (0.7-1.3) 01/30/17 14:31 Est GFR ( Amer) > 60.0 ml/min (>90) 01/30/17 14:31 Est GFR (Non-Af Amer) > 60.0 ml/min 01/30/17 14:31 BUN/Creatinine Ratio 15.5 01/30/17 14:31 Glucose 144 mg/dL (70-105) H 01/30/17 14:31 POC Glucose 90 MG/DL (70 - 105) 01/31/17 06:16 Hemoglobin A1c % 6.9 % (4.0-6.0) H 01/28/17 05:39 Calcium 9.6 mg/dL (8.6-10.3) 01/30/17 14:31 C-Reactive Protein < 0.2 mg/dL (0.0-0.9) 01/29/17 10:00 Vancomycin Trough 9.0 ug/mL (10-20) L 01/30/17 20:06 - Physical Exam Vitals and I&O: Vital Signs Temp 97.4 F 01/31/17 04:00 Pulse 65 01/31/17 07:00 Resp 16 01/31/17 07:00 BP 119/73 01/31/17 04:00 Pulse Ox 97 01/31/17 07:00 Intake & Output 01/30/17 01/31/17 01/31/17 18:59 06:59 18:59 Intake Total 750 0 Output Total 1 Balance 749 0 Weight (lbs) 103.873 kg Intake: Intake, IV Amount 250 0 Vancomycin HCl 1 gm In 250 0 Sodium Chloride 0.9% 250 ml @ 165 mls/hr IV Q12HR [facility] Rx#:[id number] Oral 500 Output: Stool 1 Other: # Voids 4 Stool Characteristics Soft Soft Formed Active Medications: Current Medications Acetaminophen (Tylenol) 650 mg PO Q6H PRN PRN Reason: mild pain and temp >101 Stop: 03/28/17 23:26 Albuterol/Ipratropium (Duoneb Neb) 3 ml HHN Q6H PRN PRN Reason: sob Stop: 03/28/17 23:26 Amlodipine Besylate (Norvasc) 10 mg PO DAILY [facility] Stop: 03/29/17 08:59 Last Admin: 01/31/17 09:19 Dose: Not Given Ascorbic Acid (Vitamin C) 500 mg PO DAILY [facility] Stop: 03/29/17 08:59 Last Admin: 01/31/17 09:18 Dose: 500 mg Clonidine HCl (Catapres) 0.1 mg PO BID [facility] Stop: 03/29/17 08:59 Last Admin: 01/31/17 09:19 Dose: Not Given Docusate Sodium (Colace) 100 mg PO BID [facility] Stop: 03/29/17 08:59 Last Admin: 01/31/17 09:18 Dose: 100 mg Duloxetine HCl (Cymbalta) 30 mg PO HS [facility] PRN Reason: Protocol Stop: 03/29/17 20:59 Last Admin: 01/30/17 21:23 Dose: 30 mg Folic Acid (Folate) 1 mg PO DAILY [facility] Stop: 03/29/17 08:59 Last Admin: 01/31/17 09:18 Dose: 1 mg Guaifenesin/Dextromethorphan (Robitussin Dm) 10 ml PO Q6HR PRN PRN Reason: Cough Stop: 03/28/17 23:26 Heparin Sodium (Porcine) (Heparin) 5,000 units SUBQ Q12H [facility] Stop: 03/29/17 20:59 Last Admin: 01/31/17 09:19 Dose: Not Given Hydralazine HCl (Apresoline) 10 mg PO Q6H PRN PRN Reason: sbp>160 Stop: 03/28/17 23:26 Vancomycin HCl 1.25 gm/ Sodium (Chloride) 250 mls @ 165 mls/hr IV Q12H [facility] Stop: 04/01/17 08:59 Last Admin: 01/31/17 09:33 Dose: 165 mls/hr Insulin Aspart (Novolog Insulin Sliding Scale) 0 units SUBQ ACHS [facility] PRN Reason: Protocol Stop: 03/29/17 07:29 Last Admin: 01/30/17 21:24 Dose: 4 units Insulin Detemir (Levemir Insulin) 10 units SUBQ HS [facility] Stop: 03/29/17 20:59 Last Admin: 01/30/17 21:24 Dose: 10 units Lisinopril (Zestril) 10 mg PO DAILY [facility] Stop: 03/29/17 08:59 Last Admin: 01/31/17 09:19 Dose: Not Given Miscellaneous (Vte Chemical Prophylaxis Screen/ Admission) 1 ea PRN PRN PRN Reason: PROTOCOL Stop: 03/29/17 15:41 Miscellaneous (Vancomycin Iv Per Pharmacy) 1 ea PRN PRN PRN Reason: PROTOCOL Stop: 03/30/17 08:30 Oxycodone/Acetaminophen (Percocet 5/325mg Oral Tab) 2 tab PO Q6H PRN PRN Reason: Pain (SEVERE) Stop: 03/28/17 17:19 Last Admin: 01/31/17 09:28 Dose: 2 tab Oxycodone/Acetaminophen (Percocet 5/325mg Oral Tab) 1 tab PO Q4H PRN PRN Reason: MOD PAIN Pregabalin (Lyrica) 25 mg PO TID [facility] Stop: 03/29/17 08:59 Last Admin: 01/31/17 09:19 Dose: Not Given Thiamine HCl (Vitamin B1) 100 mg PO DAILY [facility] Stop: 03/29/17 08:59 Last Admin: 01/31/17 09:18 Dose: 100 mg Tramadol HCl (Ultram) 50 mg PO Q6H PRN PRN Reason: breakthrough pain Stop: 03/28/17 23:26 Last Admin: 01/30/17 17:51 Dose: 50 mg Zinc Sulfate (Zinc Sulfate) 220 mg PO DAILY [facility] Stop: 03/29/17 08:59 Last Admin: 01/31/17 09:18 Dose: 220 mg General: No acute distress HEENT: Atraumatic Cardiovascular: Regular rate Assessment/Plan - Assessment Assessment: cellulitis of left foot s/p debridment of necrotizing fascitis of left first toe and forefoot Diabetes - Plan Plan: as per order sheet
[2017-01-31] MEDS: INSULIN ASPART SLIDING SCALE 100 UNITS/ML UNIT SUBQ SCH ×2 (13:00→16:47)
--- NOTE | 2017-01-31 13:13 | Infectious Disease Prog Note ---
Infectious Disease Subjective - Review of Systems Service Date: 01/31/17 Subjective: No new change, no fever. Infectious Disease Objective - Results Result Diagrams: 01/30/17 14:31 01/30/17 14:31 Recent Labs: Laboratory Last Values WBC 10.5 Th/cmm (4.8-10.8) 01/30/17 14:31 RBC 4.31 Mil/cmm (4.30-5.70) 01/30/17 14:31 Hgb 12.6 gm/dL (13.2-17.3) L 01/30/17 14:31 Hct 38.2 % (39.0-49.0) L 01/30/17 14:31 MCV 88.7 fl (80-99) 01/30/17 14:31 MCH 29.3 pg (26.0-30.0) 01/30/17 14:31 MCHC Differential 33.0 pg (28.0-36.0) 01/30/17 14:31 RDW 13.1 % (11.5-20.0) 01/30/17 14:31 Plt Count 198 Th/cmm (150-400) 01/30/17 14:31 MPV 9.4 fl 01/30/17 14:31 Neutrophils (Manual) 43 % (40-80) 01/30/17 14:31 Lymphocytes 25 % (20-50) 01/30/17 14:31 Monocytes 7 % (2-10) 01/30/17 14:31 Eosinophils 25 % (0-5) H 01/30/17 14:31 Platelet Estimate ADEQUATE (NORMAL) 01/30/17 14:31 ESR 41 mm/hr (0-20) H 01/29/17 10:00 Sodium 136 mEq/L (136-145) 01/30/17 14:31 Potassium 4.3 mEq/L (3.5-5.1) 01/30/17 14:31 Chloride 109 mEq/L (98-107) H 01/30/17 14:31 Carbon Dioxide 25.1 mEq/L (21.0-31.0) 01/30/17 14:31 Anion Gap 6.2 (7.0-16.0) L 01/30/17 14:31 BUN 17 mg/dL (7-25) 01/30/17 14:31 Creatinine 1.1 mg/dL (0.7-1.3) 01/30/17 14:31 Est GFR ( Amer) > 60.0 ml/min (>90) 01/30/17 14:31 Est GFR (Non-Af Amer) > 60.0 ml/min 01/30/17 14:31 BUN/Creatinine Ratio 15.5 01/30/17 14:31 Glucose 144 mg/dL (70-105) H 01/30/17 14:31 POC Glucose 102 MG/DL (70 - 105) 01/31/17 12:28 Hemoglobin A1c % 6.9 % (4.0-6.0) H 01/28/17 05:39 Calcium 9.6 mg/dL (8.6-10.3) 01/30/17 14:31 C-Reactive Protein < 0.2 mg/dL (0.0-0.9) 01/29/17 10:00 Vancomycin Trough 9.0 ug/mL (10-20) L 01/30/17 20:06 - Physical Exam Vitals and I&O: Vital Signs Temp 97.4 F 01/31/17 04:00 Pulse 65 01/31/17 07:00 Resp 17 01/31/17 10:49 BP 119/73 01/31/17 04:00 Pulse Ox 97 01/31/17 07:00 Intake & Output 01/30/17 01/31/17 01/31/17 18:59 06:59 18:59 Intake Total 750 0 Output Total 1 Balance 749 0 Weight (lbs) 103.873 kg Intake: Intake, IV Amount 250 0 Vancomycin HCl 1 gm In 250 0 Sodium Chloride 0.9% 250 ml @ 165 mls/hr IV Q12HR [facility] Rx#:[id number] Oral 500 Output: Stool 1 Other: # Voids 4 Stool Characteristics Soft Soft Soft Formed Formed Active Medications: Current Medications Acetaminophen (Tylenol) 650 mg PO Q6H PRN PRN Reason: mild pain and temp >101 Stop: 03/28/17 23:26 Albuterol/Ipratropium (Duoneb Neb) 3 ml HHN Q6H PRN PRN Reason: sob Stop: 03/28/17 23:26 Amlodipine Besylate (Norvasc) 10 mg PO DAILY [facility] Stop: 03/29/17 08:59 Last Admin: 07/10/17 09:19 Dose: Not Given Ascorbic Acid (Vitamin C) 500 mg PO DAILY [facility] Stop: 03/29/17 08:59 Last Admin: 01/31/17 09:18 Dose: 500 mg Clonidine HCl (Catapres) 0.1 mg PO BID [facility] Stop: 03/29/17 08:59 Last Admin: 01/31/17 09:19 Dose: Not Given Docusate Sodium (Colace) 100 mg PO BID [facility] Stop: 03/29/17 08:59 Last Admin: 01/31/17 09:18 Dose: 100 mg Duloxetine HCl (Cymbalta) 30 mg PO [facility] PRN Reason: Protocol Stop: 03/29/17 20:59 Last Admin: 01/30/17 21:23 Dose: 30 mg Folic Acid (Folate) 1 mg PO DAILY [facility] Stop: 03/29/17 08:59 Last Admin: 01/31/17 09:18 Dose: 1 mg Guaifenesin/Dextromethorphan (Robitussin Dm) 10 ml PO Q6HR PRN PRN Reason: Cough Stop: 03/28/17 23:26 Heparin Sodium (Porcine) (Heparin) 5,000 units SUBQ Q12H [facility] Stop: 03/29/17 20:59 Last Admin: 01/31/17 09:19 Dose: Not Given Hydralazine HCl (Apresoline) 10 mg PO Q6H PRN PRN Reason: sbp>160 Stop: 03/28/17 23:26 Vancomycin HCl 1.25 gm/ Sodium (Chloride) 250 mls @ 165 mls/hr IV Q12H [facility] Stop: 04/01/17 08:59 Last Admin: 01/31/17 09:33 Dose: 165 mls/hr Insulin Aspart (Novolog Insulin Sliding Scale) 0 units SUBQ ACHS [facility] PRN Reason: Protocol Stop: 03/29/17 07:29 Last Admin: 01/31/17 13:00 Dose: Not Given Insulin Detemir (Levemir Insulin) 10 units SUBQ HS [facility] Stop: 03/29/17 20:59 Last Admin: 01/30/17 21:24 Dose: 10 units Lisinopril (Zestril) 10 mg PO DAILY [facility] Stop: 03/29/17 08:59 Last Admin: 01/31/17 09:19 Dose: Not Given Miscellaneous (Vte Chemical Prophylaxis Screen/ Admission) 1 ea PRN PRN PRN Reason: PROTOCOL Stop: 03/29/17 15:41 Miscellaneous (Vancomycin Iv Per Pharmacy) 1 [facility] PRN PRN PRN Reason: PROTOCOL Stop: 03/30/17 08:30 Oxycodone/Acetaminophen (Percocet 5/325mg Oral Tab) 2 tab PO Q6H PRN PRN Reason: Pain (SEVERE) Stop: 03/28/17 17:19 Last Admin: 01/31/17 09:28 Dose: 2 tab Oxycodone/Acetaminophen (Percocet 5/325mg Oral Tab) 1 tab PO Q4H PRN PRN Reason: MOD PAIN Pregabalin (Lyrica) 25 mg PO TID [facility] Stop: 03/29/17 08:59 Last Admin: 01/31/17 09:19 Dose: Not Given Thiamine HCl (Vitamin B1) 100 mg PO DAILY [facility] Stop: 03/29/17 08:59 Last Admin: 01/31/17 09:18 Dose: 100 mg Tramadol HCl (Ultram) 50 mg PO Q6H PRN PRN Reason: breakthrough pain Stop: 03/28/17 23:26 Last Admin: 01/30/17 17:51 Dose: 50 mg Zinc Sulfate (Zinc Sulfate) 220 mg PO DAILY [facility] Stop: 03/29/17 08:59 Last Admin: 01/31/17 09:18 Dose: 220 mg General: no acute distress, well developed, well nourished HEENT: atraumatic, normocephalic, PERRLA, EOMI Neck: supple, no thyromegaly Cardiovascular: S1S2, regular, no systolic murmur Lungs: no clear to auscultation bilaterally, no clear to percussion Abdomen: soft, no tender, no distended, no rebound, no guarding, no drain Extremities: lines (Picc line in her right upper extremities.), other (Left foot wound : no change.), no cyanosis, no clubbing, no edema Neurological: awake, alert, oriented Infectious Disease Assmt/Plan - Assessment Assessment: Impression: 1. left foot wound , wound culture grew MRSA. 3 phase bone scan came negative for osteomyelitis. Patient has received 5 weeks fo IV antibiotcs. 2. DM2 recommendation: Wound care is the mainstay of the treatment. Will give vanco IV while patient is in hospital , may discharge the patient on po antibiotic: Bactrim DS bid for 7 days. May follow up Dr Guillen's recommendations. DC PICC line on discharge. DW patient. patient is getting discharged to SNF.
== END 2017-01-31 17:15 | disposition home or self-care (01) | DRG 383 ==
LOC: ER 14:19 → MSI 14:45
PROVIDERS: ADMIT Internal Medicine; ATTEND Internal Medicine
DX: L03.116 Cellulitis of left lower limb (principal); B95.62 Methicillin resistant Staphylococcus aureus infection as the cause of diseases classified elsewhere; S91.302A Unspecified open wound, left foot, initial encounter; E11.9 Type 2 diabetes mellitus without complications; Z79.4 Long term (current) use of insulin
CPT/HCPCS: 36415-UA; 78315-TC; 80048-TC; 80202-TC; 82948-90; 83036-90; 85007-TC; 85027-TC; 85652-TC; 86141-TC; 87070-90; 94760; A4217; A9503; J1644; J1815; J3370; J7030; J7040; Z7610